=== PATIENT | female | born 1995 | race Asian ===

== ENCOUNTER 2017-03-01 16:59 | Emergency (ER) | payer OTHER, MEDICAID ==
[2017-03-01 18:33] VITALS: BP 101/66
--- NOTE | 2017-03-01 19:22 | UC ---
Skin Complaint HPI - HPI Summary HPI Summary: PT HAS HAD CHRONIC SKIN LESIONS THAT COME AND GO ON HER LEGS AND ARMS FOR OVER A YEAR. USUALLY KEEPS THEM AT BAY WITH TOPICAL STEROIDS AND CREAMS. SHE STATES THEY WORSEN WHEN SHE IS STRESSED. TODAY SHE CAME IN DUE TO CONCERN THAT THE LESION ON HER RIGHT LOWER LEG IS INFECTED. IT HAS A YELLOWISH CENTER AND SCABBED OVER AREAS. NO FEVER. - History of Current Complaint Chief Complaint: UCSkin Time Seen by Provider: 03/01/17 19:09 Stated Complaint: WOUND ON LEG Hx Obtained From: Patient Hx Last Menstrual Period: february 12 Onset/Duration: Gradual Onset, Still Present Timing: Intermittent Episodes Lasting: Onset Severity: Moderate Current Severity: Moderate Pain Intensity: 0 Pain Scale Used: 0-10 Numeric Location: Other - SCATTERED OVER ARMS AND LEGS Character: Pruritus, Pain Aggravating: Touch Alleviating: Nothing - Allergy/Home Medications Allergies/Adverse Reactions: Allergies Allergy/AdvReac Type Severity Reaction Status Date / Time Sulfa Antibiotics Allergy Hives Verified 03/01/17 18:27 Home Medications: Home Medications NK [No Home Medications Reported] 03/01/17 [History Confirmed 03/01/17] Review of Systems Constitutional: Negative Skin: Rash Respiratory: Negative Cardiovascular: Negative Gastrointestinal: Negative All Other Systems Reviewed And Are Negative: Yes PMH/Surg Hx/FS Hx/Imm Hx Previously Healthy: Yes - Surgical History Surgical History: None - Family History Known Family History: Positive: Hypertension - Social History Alcohol Use: Rare Substance Use Type: None Smoking Status (MU): Never Smoked Tobacco Physical Exam Triage Information Reviewed: Yes Appearance: Well-Appearing, No Pain Distress, Well-Nourished Vital Signs: Initial Vital Signs Temp 98.6 F 03/01/17 18:28 Pulse 68 03/01/17 18:28 Resp 16 03/01/17 18:28 BP 101/66 03/01/17 18:28 Pulse Ox 100 03/01/17 18:28 Vital Signs Reviewed: Yes Eyes: Positive: Conjunctiva Clear ENT: Positive: Hearing grossly normal Neck: Positive: Supple Respiratory: Positive: No respiratory distress, No accessory muscle use Cardiovascular: Positive: Pulses Normal Abdomen Description: Positive: Soft Musculoskeletal: Positive: No Edema Neurological: Positive: Alert Psychological: Positive: Age Appropriate Behavior Skin: Positive: Other - SCATTERED <1CM SCABBED OVER CRUSTED LESIONS ON BILATERAL ARM AND LEGS. 3CM X 2CM LESION RIGHT MEDIAL LOWER LEG WITH HEALING TISSUE IN CENTER. NO SURROUNDING ERYTHEMA. NO DRAINAGE. MILDLY TTP. Course/Dx - Diagnoses Provider Diagnoses: DERMATITIS Discharge - Discharge Plan Condition: Stable Disposition: HOME Patient Education Materials: Dermatitis (ED) Referrals: Tesha Ramos [Medical Doctor] - Additional Instructions: YOU NEED TO FOLLOW-UP WITH A FOCUSING MACHINE OPERATOR FOR FURTHER EVALUATION AND DIAGNOSIS. CONTINUE TO TREAT YOU HAVE BEEN WITH YOUR TOPICAL CREAMS IF THEY ARE HELPFUL. NO SIGN OF INFECTION TODAY. SEEK FOLLOW-UP IF YOU DEVELOP SPREADING REDNESS OF THE SKIN, PURULENT DRAINAGE, FEVER, INCREASED PAIN OR ANY OTHER CONCERNING SYMPTOMS.
== END 2017-03-01 19:34 | disposition home or self-care (01) ==
LOC: UCEAST 16:59
DX: L30.9 Dermatitis, unspecified (principal); Z88.2 Allergy status to sulfonamides
CPT/HCPCS: 99211; G0463